=== PATIENT | female | born 1995 | race American Indian/Alaskan Native ===

== ENCOUNTER 2019-02-16 21:19 | Emergency (ER) | payer BC, OTHER ==
[2019-02-16 21:53] LABS: Hematocrit 40.3 % (30.3-42.9); Hemoglobin 14.1 gm/dl (10.1-14.3); Mean Corpuscular HGB Conc 35 % (30-34); Mean Corpuscular Volume 88 fl (79-97); Platelet Count 403 K/mm3 (140-440)
[2019-02-16 22:13] LABS: Alanine Aminotransferase 36 units/L (7-56); Albumin 4.4 g/dL (3.9-5); BUN/Creatinine Ratio 9; Blood Urea Nitrogen 8 mg/dL (7-17); Calcium 9.6 mg/dL (8.4-10.2); Hemolysis Index 11
[2019-02-16 22:24] LABS: Ovalocytes Few; Platelet Estimate Consistent w Auto; Total Cells Counted 100
[2019-02-16 22:26] LABS: Bilirubin,Urine NEG (Negative); Blood,Urine NEG (Negative); Color,Urine Yellow (Yellow); Mucus,Urine 2+ /HPF; Protein,Urine <15 mg/dL mg/dL (Negative); Urobilinogen,Urine < 2.0 mg/dL (<2.0)
[2019-02-17] MEDS ORDERED: PEPCID PO ONE (01:45)
[2019-02-17] MEDS ORDERED: ZOFRAN ODT PO ONE (01:45)
[2019-02-17] MEDS ORDERED: BENTYL PO ONE (01:55)
[2019-02-17 02:31] LABS: HCG Qualitative,Urine Negative (Negative)
--- NOTE | 2019-02-17 02:49 | Emergency Department Report ---
ED N/V/D HPI - General Chief complaint: Nausea/Vomiting/Diarrhea Stated complaint: DIZZINESS/VOMITING/PRESSURE IN EARS Time Seen by Provider: 02/17/19 01:40 Source: patient Mode of arrival: Ambulatory Limitations: No Limitations - History of Present Illness Initial comments: Patient is a nulliparous 23-year-old female with no past medic al history who presents to the ED with complaint of acute onset of persistent nausea and vomiting and diffuse abdominal pain for the last 3 days intermittently. Patient states that the symptoms got worse in the last 24 hours such that she has not being able to eat or drink anything because of persistent nausea and vomiting. Patient states that she cannot really remember that she ate some food in a restaurant more than 3 days ago. Patient denies fever, chills, dysuria, urinary frequency and urgency, vaginal bleeding, purulent discharge, diarrhea, chest pain, shortness of breath, sore throat, dizziness or lightheadedness and back pain. MD complaint: nausea, vomiting, abdominal pain -: Sudden, days(s) (3) Description of Vomiting: food contents, bilious Associated Abdominal Pain: Yes (diffuse) Location: diffuse Radiation: none Severity: moderate Pain Scale: 6 Quality: cramping, aching Consistency: intermittent Improves with: none Worsens with: none Context: possible food poisoning Associated Symptoms: loss of appetite, malaise, nausea/vomiting. denies: myalgias, chest pain, cough, diaphoresis, fever/chills, headaches, rash, dysuria, shortness of breath, syncope, weakness - Related Data Previous Rx's Medication Instructions Recorded Last Taken Type Hyoscyamine Subl [Levsin Sl 0.125 0.125 mg SL Q6HR PRN #20 tab 07/29/18 Unknown Rx TAB] Ondansetron [Zofran Odt] 4 mg PO Q6H #10 tab.rapdis 07/29/18 Unknown Rx Dicyclomine [Bentyl] 20 mg PO Q6H PRN #20 tablet 02/17/19 Unknown Rx Ondansetron [Zofran Odt] 4 mg PO Q8HR #15 tab.rapdis 02/17/19 Unknown Rx Ranitidine HCl [Zantac] 150 mg PO Q12H #20 tablet 02/17/19 Unknown Rx Allergies Allergy/AdvReac Type Severity Reaction Status Date / Time No Known Allergies Allergy Unverified 07/28/18 16:50 ED Review of Systems ROS: Stated complaint: DIZZINESS/VOMITING/PRESSURE IN EARS Other details as noted in HPI Comment: All other systems reviewed and negative Constitutional: no symptoms reported, see HPI, malaise. denies: chills, fever Eyes: as per HPI. denies: eye pain, eye discharge, vision change ENT: as per HPI. denies: ear pain, throat pain, dental pain, hearing loss Respiratory: no symptoms reported, see HPI. denies: cough, orthopnea, shortness of breath, SOB with exertion Cardiovascular: as per HPI. denies: chest pain, dyspnea on exertion, syncope, paroxysmal nocturnal dyspnea Endocrine: no symptoms reported, see HPI. denies: excessive sweating, into lerance to cold, increased thirst, increased urine, unexplained weight gain Gastrointestinal: as per HPI, abdominal pain, nausea, vomiting. denies: diarrhea, constipation, hematemesis, hematochezia Genitourinary: as per HPI. denies: urgency, dysuria, frequency, hematuria, discharge, abnormal menses Musculoskeletal: as per HPI, myalgia. denies: back pain, joint swelling, arthralgia Skin: as per HPI. denies: lesions, change in color, change in hair/nails Neurological: as per HPI. denies: headache, weakness, paresthesias, abnormal gait Psychiatric: as per HPI. denies: depression, auditory hallucinations, visual hallucinations Hematological/Lymphatic: as per HPI ED Past Medical Hx - Past Medical History Previous Medical History?: Yes Hx Asthma: Yes - Surgical History Past Surgical History?: No - Social History Smoking Status: Former Smoker Substance Use Type: Alcohol, Marijuana - Medications Home Medications: Home Medications Medication Instructions Recorded Confirmed Last Taken Type Hyoscyamine Subl [Levsin Sl 0.125 0.125 mg SL Q6HR PRN #20 tab 07/29/18 Unknown Rx TAB] Ondansetron [Zofran Odt] 4 mg PO Q6H #10 tab.rapdis 07/29/18 Unknown Rx Dicyclomine [Bentyl] 20 mg PO Q6H PRN #20 tablet 02/17/19 Unknown Rx Ondansetron [Zofran Odt] 4 mg PO Q8HR #15 tab.rapdis 02/17/19 Unknown Rx Ranitidine HCl [Zantac] 150 mg PO Q12H #20 tablet 02/17/19 Unknown Rx ED Physical Exam - General Limitations: No Limitations General appearance: alert, in no apparent distress - Head Head exam: Present: atraumatic, normocephalic, normal inspection - Eye Eye exam: Present: normal appearance, PERRL, EOMI Pupils: Present: normal accommodation - ENT ENT exam: Present: normal exam, normal orophraynx, mucous membranes moist, TM's normal bilaterally, normal external ear exam - Neck Neck exam: Present: normal inspection. Absent: full ROM, lymphadenopathy - Respiratory Respiratory exam: Present: normal lung sounds bilaterally. Absent: respiratory distress, wheezes, chest wall tenderness, accessory muscle use, decreased breath sounds - Cardiovascular Cardiovascular Exam: Present: regular rate, normal rhythm, normal heart sounds - GI/Abdominal GI/Abdominal exam: Present: soft, normal bowel sounds. Absent: distended, tenderness, hyperactive bowel sounds, hypoactive bowel sounds - Rectal Rectal exam: Present: deferred - Extremities Exam Extremities exam: Present: normal inspection, full ROM, normal capillary refill - Back Exam Back exam: Present: normal inspection, full ROM. Absent: CVA tenderness (R), CVA tenderness (L), paraspinal tenderness, vertebral tenderness - Neurological Exam Neurological exam: Present: alert, oriented X3, CN II-XII intact, normal gait, reflexes normal - Psychiatric Psychiatric exam: Present: normal affect - Skin Skin exam: Present: warm, dry, intact ED Course Vital Signs 02/16/19 21:27 Temperature 97.9 F Pulse Rate 83 Respiratory 18 Rate Blood Pressure 139/86 O2 Sat by Pulse 99 Oximetry ED Medical Decision Making - Lab Data Result diagrams: 02/16/19 21:43 02/16/19 21:43 - Medical Decision Making Patient is alert and oriented 3 and is not in distress. Lab test results were reviewed and are unremarkable. Patient was treated for nausea and vomiting in the ED as well as for pain. On reevaluation, patient passed oral fluid challenge, and took all medications by mouth. Patient did not have any nausea and vomiting episodes while in the ED. Patient discharged home on medications and advised to follow-up with her primary care physician in 5-7 days for reevaluation or return to the ED immediately if symptoms get worse. - Differential Diagnosis Acute viral gastroenteritis, Nausea and vomiting Critical care attestation.: If time is entered above; I have spent that time in minutes in the direct care of this critically ill patient, excluding procedure time. ED Disposition Clinical Impression: Viral gastroenteritis, Nausea and vomiting in adult Disposition: TO HOME OR SELFCARE Is pt being admited?: No Does the pt Need Aspirin: No Condition: Stable Instructions: Acute Nausea and Vomiting (ED), Gastroenteritis (ED) Additional Instructions: MAINTAIN A CLEAR LIQUID DIET FOR THE NEXT 12-24 HOURS, TAKE MEDICATIONS WITH FOOD, DRINK PLENTY OF FLUIDS AND FOLLOW UP WITH YOUR PRIMARY CARE PHYSICIAN ADVISED. RETURN TO THE ED IMMEDIATELY IF SYMPTOMS GET WORSE Prescriptions: Dicyclomine [Bentyl] 20 mg PO Q6H PRN #20 tablet PRN Reason: Pain , Severe (7-10) Ranitidine HCl [Zantac] 150 mg PO Q12H #20 tablet Ondansetron [Zofran Odt] 4 mg PO Q8HR #15 tab.rapdis Referrals: SVETLANA ROWLANDPARROTT MD DYANA [Primary Care Provider] - 3-5 Days Forms: Work/School Release Form(ED) Time of Disposition: 02:56 Print Language: SOU[place]UD[place]
[2019-02-17 03:17] VITALS: BP 113/78
== END 2019-02-17 03:20 | disposition home or self-care (01) ==
LOC: ED 21:19
DX: A08.4 Viral intestinal infection, unspecified (principal); J45.909 Unspecified asthma, uncomplicated; F12.10 Cannabis abuse, uncomplicated; Z87.891 Personal history of nicotine dependence; Z79.899 Other long term (current) drug therapy
CPT/HCPCS: 36415; 80053; 81001; 81025; 85007; 85025; 93005; 93010; 99283; Q0162